=== PATIENT | male | born 1995 | race Caucasian/White ===

== ENCOUNTER 2017-05-16 20:46 | Emergency (ER) | payer MEDICAID ==
[~2017-05-16 20:46] MED LIST: PANT20 PO; SUCR1S PO; ZANTTAB9 PO; ZOFR4TAB3 PO; ZOFR4TAB3 SL
[2017-05-16 20:55] VITALS: BP 102/57; PULSE 78; RESP 16; TEMP 98.1; O2SAT 99
== END 2017-05-16 23:18 | disposition left against medical advice (07) ==
LOC: NED 20:46
DX: J00 Acute nasopharyngitis [common cold] (principal)
CPT/HCPCS: 99281